=== PATIENT | female | born 1960 | race Caucasian/White ===

== ENCOUNTER 2019-10-28 12:41 | Emergency (ER) | payer MEDICARE ==
[~2019-10-28] VITALS: Ht 165.1 cm; Wt 115.1 kg
[~2019-10-28 12:41] MED LIST: AMOX1TAB64 PO; BACL-19 PO; HYDR-826 PO; IBUP-1222 PO
[2019-10-28 12:57] VITALS: BP 163/92
[2019-10-28] MEDS ORDERED: FAMOTIDINE 20 MG TABLET PO ONE (14:00)
[2019-10-28] MEDS ORDERED: FAMOTIDINE 20 MG TABLET ONE (14:02)
--- NOTE | 2019-10-28 14:10 | NUR ---
MEDICATED NOTED ON JUN FOR ALL OVER BODY RASH. C/O BURNING PAIN
--- NOTE | 2019-10-28 15:14 | NUR ---
ERYTHEMA IMPROVED SINCE MEDICATED. GIVEN DISCHARGE AND AMBULATED TO D/C WINDOW STEADY GAIT WITH USE OF WALKER
== END 2019-10-28 15:16 | disposition home or self-care (01) ==
LOC: ED 14:22
DX: L50.9 Urticaria, unspecified (principal); R00.0 Tachycardia, unspecified; J45.909 Unspecified asthma, uncomplicated; K21.9 Gastro-esophageal reflux disease without esophagitis
CPT/HCPCS: 99284; J7512; Q0177

== ENCOUNTER 2020-01-06 22:46 | Emergency (ER) | payer MEDICARE ==
[~2020-01-06] VITALS: Ht 165.1 cm; Wt 112.5 kg
[2020-01-06] MEDS ORDERED: IBUPROFEN 800 MG TABLET ONE (23:09)
[2020-01-06] MEDS ORDERED: DIPHENHYDRAMINE 25 MG CAPSULE ONE (23:12)
[2020-01-06 23:25] VITALS: BP 150/82
[2020-01-06] MEDS ORDERED: DIPHENHYDRAMINE 25 MG CAPSULE PO ONE (23:30)
[2020-01-06] MEDS ORDERED: IBUPROFEN 800 MG TABLET PO ONE (23:30)
== END 2020-01-07 00:13 | disposition home or self-care (01) ==
LOC: ED 23:16
DX: L29.8 Other pruritus (principal); K21.9 Gastro-esophageal reflux disease without esophagitis; J45.909 Unspecified asthma, uncomplicated; Z90.89 Acquired absence of other organs
CPT/HCPCS: 99283; Q0163

== ENCOUNTER 2020-12-21 21:40 | Emergency (ER) | payer MEDICARE, MEDICAID ==
[~2020-12-21] VITALS: Ht 165.1 cm; Wt 113.6 kg
[2020-12-21 23:21] VITALS: BP 150/78
--- NOTE | 2020-12-21 23:28 | NUR ---
Patient given discharge instructions and they have confirmed that they understand the instructions. Patient ambulatory with steady gait. NAD, all questions answered appropriately, denies additional needs at this time. No personal belongings left in room after discharge.
== END 2020-12-21 23:29 | disposition home or self-care (01) ==
LOC: ED 23:19
DX: R21 Rash and other nonspecific skin eruption (principal); R06.00 Dyspnea, unspecified
CPT/HCPCS: 99281

== ENCOUNTER 2021-01-22 17:09 | Emergency (ER) | payer MEDICARE, MEDICAID ==
[~2021-01-22] VITALS: Ht 165.1 cm; Wt 116.0 kg
== END 2021-01-22 18:59 | disposition home or self-care (01) ==
LOC: ED 17:19
DX: L02.213 Cutaneous abscess of chest wall (principal); K21.9 Gastro-esophageal reflux disease without esophagitis; J45.909 Unspecified asthma, uncomplicated